=== PATIENT | female | born 1955 | race Caucasian/White ===

== ENCOUNTER 2016-12-23 18:40 | Emergency (ER) | payer OTHER ==
[~2016-12-23] VITALS: Ht 165.1 cm; Wt 66.2 kg
[~2016-12-23 18:40] MED LIST: FLEXERIL10 MG PO; IMITREX25 MG PO; LUNESTA2 MG PO; ULTRAM50 MG PO; WELLBUTRIN100 MG PO
[2016-12-23] MEDS ORDERED: WELLBUTRIN100 MG PO (21:36)
== END 2016-12-23 20:40 | disposition short-term general hospital (02) ==
LOC: ER 18:40
DX: T42.6X2A Poisoning by other antiepileptic and sedative-hypnotic drugs, intentional self-harm, initial encounter (principal); T43.292A Poisoning by other antidepressants, intentional self-harm, initial encounter; F32.9 Major depressive disorder, single episode, unspecified; F41.9 Anxiety disorder, unspecified; G43.909 Migraine, unspecified, not intractable, without status migrainosus; Z90.49 Acquired absence of other specified parts of digestive tract; Z90.710 Acquired absence of both cervix and uterus; Z79.899 Other long term (current) drug therapy; G47.00 Insomnia, unspecified
CPT/HCPCS: G0477; G0480

== ENCOUNTER 2017-01-10 01:18 | Observation (INO) | payer OTHER ==
[~2017-01-10] VITALS: Ht 167.6 cm; Wt 65.3 kg
[2017-01-10] MEDS ORDERED: WELLBUTRIN100 MG PO (03:48)
[2017-01-10] MEDS ORDERED: IMITREX50 MG PO (03:48)
[2017-01-10] MEDS ORDERED: TRAZODONE HCL50 MG PO (03:48)
[2017-01-10] MEDS ORDERED: BELSOMRA10 MG PO (03:49)
[2017-01-10] MEDS ORDERED: VIBERZI100 MG PO (03:50)
== END 2017-01-11 09:40 | disposition short-term general hospital (02) ==
LOC: ER 01:18 → OBS 04:10 → IP 04:10
PROVIDERS: ADMIT Family Medicine
DX: K85.90 Acute pancreatitis without necrosis or infection, unspecified (principal); R94.5 Abnormal results of liver function studies; F32.9 Major depressive disorder, single episode, unspecified; Z79.899 Other long term (current) drug therapy; Z90.49 Acquired absence of other specified parts of digestive tract; Z90.710 Acquired absence of both cervix and uterus
CPT/HCPCS: G0378; J2270; J2405